=== PATIENT | male | born 1970 | race Two or more races ===

== ENCOUNTER 2016-10-09 07:33 | Observation (INO) | payer SELFPAY ==
[2016-10-09] MEDS ORDERED: Sodium Chloride 0.9% 1,000 ML IV STA (07:51)
[2016-10-09] MEDS ORDERED: Ketorolac 30 MG/ML SDV IVPUSH ONE (07:53)
[2016-10-09] MEDS ORDERED: Ondansetron 4 MG/2 ML SDV IVPUSH ONE (07:53)
[2016-10-09] MEDS ORDERED: HYDROmorphone 1 MG/ML Syringe IVPUSH ONE (08:01)
--- NOTE | 2016-10-09 08:03 | EDM.PDOC ---
ED HPI GENERAL MEDICAL PROBLEM - General Chief Complaint: Genitourinary Problem Stated Complaint: BLOOD IN URINE, FEVERISH Time Seen by Provider: 10/09/16 10:08 - History of Present Illness INITIAL COMMENTS - FREE TEXT/NARRATIVE: HISTORY AND PHYSICAL: History of present illness: Patient 45-year-old male presents with a concern of left-sided abdominal brain radiation to the groin 1 and half days with associated nausea he states he's felt feverish but denies documented temperature he's had no chills denies history urolithiasis denies trauma Review of systems: As per history of present illness and below otherwise all systems reviewed and negative. Past medical history: As per history of present illness and as reviewed below otherwise noncontributory. Surgical history: As per history of present illness and as reviewed below otherwise noncontributory. Social history: No reported history of drug or alcohol abuse. Family history: As per history of present illness and as reviewed below otherwise noncontributory. Physical exam: HEENT: Atraumatic, normocephalic, pupils reactive, negative for conjunctival pallor or scleral icterus, mucous membranes moist, throat clear, neck supple, nontender, trachea midline. Lungs: Clear to auscultation, breath sounds equal bilaterally, chest nontender. Heart: S1S2, regular, negative for clicks, rubs, or JVD. Abdomen: Soft, nondistended, nontender. Negative for masses or hepatosplenomegaly. Left side costovertebral tenderness. Pelvis: Stable nontender. Genitourinary: Deferred. Rectal: Deferred. Extremities: Atraumatic, negative for cords or calf pain. Neurovascular unremarkable. Neuro: Awake, alert, oriented. Cranial nerves II through XII unremarkable. Cerebellum unremarkable. Motor and sensory unremarkable throughout. Exam nonfocal. Diagnostics: CBC CMP UA urine culture CT abdomen and pelvis Therapeutics: Normal saline 1 L bolus and Toradol 30 mg IV Zofran 4 mg IV Flomax 0.4 mg by mouth Dilaudid 1 mg IV Impression: #1 left-sided abdominal/flank pain Definitive disposition and diagnosis as appropriate pending reevaluation and review of above. hypogastric area Pain Score (Numeric/FACES): 10 - Related Data Allergies Allergy/AdvReac Type Severity Reaction Status Date / Time No Known Allergies Allergy Verified 10/09/16 07:42 Home Meds: Home Meds . [No Known Home Meds] 10/09/16 [History] Past Medical History - Past Health History Medical/Surgical History: Denies Medical/Surgical History Social & Family History - Family History Family Medical History: Noncontributory - Tobacco Use Smoking Status *Q: Never Smoker - Recreational Drug Use Recreational Drug Use: No ED ROS GENERAL - Review of Systems Review Of Systems: ROS reveals no pertinent complaints other than HPI. ED EXAM, GENERAL - Physical Exam Exam: See Below (See dictation) Course - Vital Signs Last Recorded V/S: Last Vital Signs Temp 36.4 C 10/09/16 07:42 Pulse 88 10/09/16 09:02 Resp 15 10/09/16 09:02 BP 132/82 10/09/16 09:02 Pulse Ox 94 L 10/09/16 09:02 - Orders/Labs/Meds Orders: Active Orders 24 hr Category Date Time Status Patient Status [ADT] Stat ADT 10/09/16 10:00 Active Abdomen Pelvis wo Cont [CT] Stat Exams 10/09/16 07:57 Taken Labs: Laboratory Tests 10/09/16 10/09/16 10/09/16 Range/Units 07:48 07:48 08:57 WBC 21.60 H (4.0-11.0) K/uL RBC 4.88 (4.50-5.90) M/uL Hgb 16.2 (13.0-17.0) g/dL Hct 45.4 (38.0-50.0) % MCV 93.0 (80.0-98.0) fL MCH 33.2 H (27.0-32.0) pg MCHC 35.7 (31.0-37.0) g/dL RDW Std Deviation 44.1 (28.0-62.0) fl RDW Coeff of [place] 13 (11.0-15.0) % Plt Count 236 (150-400) K/uL MPV 10.10 (7.40-12.00) fL Neut % (Auto) 86.7 H (48.0-80.0) % Lymph % (Auto) 4.4 L (16.0-40.0) % [place] % (Auto) 8.8 (0.0-15.0) % Eos % (Auto) 0.0 (0.0-7.0) % Baso % (Auto) 0.1 (0.0-1.5) % Neut # (Auto) 18.7 H (1.4-5.7) K/uL Lymph # (Auto) 1.0 (0.6-2.4) K/uL [place] # (Auto) 1.9 H (0.0-0.8) K/uL Eos # (Auto) 0.0 (0.0-0.7) K/uL Baso # (Auto) 0.0 (0.0-0.1) K/uL Nucleated RBC % 0.0 /100WBC Nucleated RBCs # 0 K/uL Sodium 135 L (136-146) mmol/L Potassium 3.5 (3.5-5.1) mmol/L Chloride 104 (98-110) mmol/L Carbon Dioxide 21 (21-31) mmol/L BUN 8 (6.0-23.0) mg/dL Creatinine 1.1 (0.6-1.5) mg/dL Est Cr Clr Drug Dosing TNP Estimated GFR (MDRD) > 60.0 ml/min Glucose 152 H (60-110) mg/dL Calcium 9.1 (8.8-10.8) mg/dL Total Bilirubin 1.8 H (0.1-1.5) mg/dL AST 33 (5-40) IU/L ALT 48 (8-54) IU/L Alkaline Phosphatase 62 (40-150) Total Protein 8.1 H (6.0-8.0) g/dL Albumin 4.5 (3.5-5.0) g/dL Globulin 3.6 H (2.0-3.5) g/dL Albumin/Globulin Ratio 1.3 (1.3-2.8) Urine Color YELLOW Urine Appearance HAZY Urine pH 6.0 (5.0-8.0) Ur Specific [place] 1.010 (1.001-1.035) Urine Protein NEGATIVE (NEGATIVE) mg/dL Urine Glucose (UA) NEGATIVE (NEGATIVE) mg/dL Urine Ketones 40 H (NEGATIVE) mg/dL Urine Occult Blood LARGE H (NEGATIVE) Urine Nitrite POSITIVE H (NEGATIVE) Urine Bilirubin NEGATIVE (NEGATIVE) Urine Urobilinogen 0.2 (<2.0) EU/dL Ur Leukocyte Esterase MODERATE (NEGATIVE) Urine RBC 1-3 (0-2/HPF) Urine WBC 20-25 (0-5/HPF) Ur Epithelial Cells RARE (NONE-FEW) Urine Bacteria 1+ H (NEGATIVE) Meds: Medications Discontinued Medications Generic Name Dose Route Start Last Admin Trade Name Ana PRN Reason Stop Dose Admin Hydromorphone HCl 1 mg 10/09/16 08:01 10/09/16 08:04 Dilaudid IVPUSH 10/09/16 08:02 1 mg ONETIME ONE Administration Sodium Chloride 1,000 mls @ 999 mls/hr 10/09/16 07:51 10/09/16 07:58 Normal Saline IV 10/09/16 08:51 999 mls/hr NOW STA Administration Ceftriaxone Sodium/Dextrose 1 50 mls @ 100 mls/hr 10/09/16 09:21 10/09/16 09: 24 gm/ Premix IV 10/09/16 09:50 100 mls/hr ONETIME ONE Administration Ketorolac Tromethamine 30 mg 10/09/16 07:53 10/09/16 07:58 Toradol IVPUSH 10/09/16 07:54 30 mg ONETIME ONE Administration Ondansetron HCl 4 mg 10/09/16 07:53 10/09/16 07:58 Zofran IVPUSH 10/09/16 07:54 4 mg ONETIME ONE Administration Departure - Departure Time of Disposition: 10:08 Disposition: Refer to Observation Condition: Good Clinical Impression: UTI, Urinary tract infectious disease - Discharge Information Forms: ED Department Discharge - My Orders Last 24 Hours: My Active Orders 10/09/16 07:57 Abdomen Pelvis wo Cont [CT] Stat 10/09/16 10:00 Patient Status [ADT] Stat - Assessment/Plan Last 24 Hours: My Active Orders 10/09/16 07:57 Abdomen Pelvis wo Cont [CT] Stat 10/09/16 10:00 Patient Status [ADT] Stat
[2016-10-09 08:20] LABS: CHLORIDE,CL 104 mmol/L (98-110); SODIUM,NA 135 mmol/L (136-146)
[2016-10-09] MEDS ORDERED: cefTRIAXone 1 GM in Premix Bag 1 BAG IV ONE (09:21)
--- NOTE | 2016-10-09 10:14 | PCM.HP ---
H&P History of Present Illness - General Date of Service: 10/09/16 Admit Problem/Dx: Admission Diagnosis/Problem Admission Diagnosis/Problem Leukocytosis - History of Present Illness Initial Comments - Free Text/Narative: 45 yo male otherwise healthy admitted for pyelonephritis. He states she had dysuria, freqency and urgency since two days. He has abdominal pain that is located left sided that is radiating to groin. He does not have back pain. He has not been drinking enough water. He does not any STI symptoms. He does not smoke, drink etoh, or use illcit drugs. hypogastric area Pain Score (Numeric/FACES): 10 - Related Data Allergies/Adverse Reactions: Allergies Allergy/AdvReac Type Severity Reaction Status Date / Time No Known Allergies Allergy Verified 10/09/16 07:42 Home Medications: Home Meds . [No Known Home Meds] 10/09/16 [History] Past Medical History - Past Health History Medical/Surgical History: Denies Medical/Surgical History Social & Family History - Family History Family Medical History: Noncontributory - Tobacco Use Smoking Status *Q: Never Smoker - Recreational Drug Use Recreational Drug Use: No H&P Review of Systems - Review of Systems: Review Of Systems: See Below General: Reports: Fever, Chills HEENT: Reports: No Symptoms Pulmonary: Reports: No Symptoms Cardiovascular: Reports: No Symptoms Gastrointestinal: Reports: Abdominal Pain, Decreased Appetite Genitourinary: Reports: Dysuria, Frequency, Burning, Pain, Urgency. Denies: Hematuria, Discharge Musculoskeletal: Reports: No Symptoms Skin: Reports: No Symptoms Psychiatric: Reports: No Symptoms Neurological: Reports: No Symptoms Hematologic/Lymphatic: Reports: No Symptoms Immunologic: Reports: No Symptoms Exam - Exam Exam: See Below - Vital Signs Vital Signs: Last Vital Signs Temp 97.6 F 10/09/16 07:42 Pulse 88 10/09/16 09:02 Resp 15 10/09/16 09:02 BP 132/82 10/09/16 09:02 Pulse Ox 94 L 10/09/16 09:02 Weight: 90.6 kg - Exam General: Alert, Oriented HEENT: Conjunctiva Clear, EOMI Neck: Supple, Trachea Midline Lungs: Normal Respiratory Effort Cardiovascular: Regular Rate, Regular Rhythm Abdomen: Normal Bowel Sounds, Soft, Other (suprapubic tenderness. Negatvie Bilateral CVAT) Back Exam: Normal Inspection, Full Range of Motion Extremities: Normal Inspection Skin: Warm, Dry, Intact Neurological: Cranial Nerves Intact Psychiatric: Alert, Normal Affect, Normal Mood - Patient Data Lab Results Last 24 hrs: Laboratory Results - last 24 hr 10/09/16 10/09/16 10/09/16 Range/Units 07:48 07:48 08:57 WBC 21.60 H (4.0-11.0) K/uL RBC 4.88 (4.50-5.90) M/uL Hgb 16.2 (13.0-17.0) g/dL Hct 45.4 (38.0-50.0) % MCV 93.0 (80.0-98.0) fL MCH 33.2 H (27.0-32.0) pg MCHC 35.7 (31.0-37.0) g/dL RDW Std Deviation 44.1 (28.0-62.0) fl RDW Coeff of [place] 13 (11.0-15.0) % Plt Count 236 (150-400) K/uL MPV 10.10 (7.40-12.00) fL Neut % (Auto) 86.7 H (48.0-80.0) % Lymph % (Auto) 4.4 L (16.0-40.0) % [place] % (Auto) 8.8 (0.0-15.0) % Eos % (Auto) 0.0 (0.0-7.0) % Baso % (Auto) 0.1 (0.0-1.5) % Neut # (Auto) 18.7 H (1.4-5.7) K/uL Lymph # (Auto) 1.0 (0.6-2.4) K/uL [place] # (Auto) 1.9 H (0.0-0.8) K/uL Eos # (Auto) 0.0 (0.0-0.7) K/uL Baso # (Auto) 0.0 (0.0-0.1) K/uL Nucleated RBC % 0.0 /100WBC Nucleated RBCs # 0 K/uL Sodium 135 L (136-146) mmol/L Potassium 3.5 (3.5-5.1) mmol/L Chloride 104 (98-110) mmol/L Carbon Dioxide 21 (21-31) mmol/L BUN 8 (6.0-23.0) mg/dL Creatinine 1.1 (0.6-1.5) mg/dL Est Cr Clr Drug Dosing TNP Estimated GFR (MDRD) > 60.0 ml/min Glucose 152 H (60-110) mg/dL Calcium 9.1 (8.8-10.8) mg/dL Total Bilirubin 1.8 H (0.1-1.5) mg/dL AST 33 (5-40) IU/L ALT 48 (8-54) IU/L Alkaline Phosphatase 62 (40-150) Total Protein 8.1 H (6.0-8.0) g/dL Albumin 4.5 (3.5-5.0) g/dL Globulin 3.6 H (2.0-3.5) g/dL Albumin/Globulin Ratio 1.3 (1.3-2.8) Urine Color YELLOW Urine Appearance HAZY Urine pH 6.0 (5.0-8.0) Ur Specific [place] 1.010 (1.001-1.035) Urine Protein NEGATIVE (NEGATIVE) mg/dL Urine Glucose (UA) NEGATIVE (NEGATIVE) mg/dL Urine Ketones 40 H (NEGATIVE) mg/dL Urine Occult Blood LARGE H (NEGATIVE) Urine Nitrite POSITIVE H (NEGATIVE) Urine Bilirubin NEGATIVE (NEGATIVE) Urine Urobilinogen 0.2 (<2.0) EU/dL Ur Leukocyte Esterase MODERATE (NEGATIVE) Urine RBC 1-3 (0-2/HPF) Urine WBC 20-25 (0-5/HPF) Ur Epithelial Cells RARE (NONE-FEW) Urine Bacteria 1+ H (NEGATIVE) Result Diagrams: 10/09/16 07:48 10/09/16 07:48 *Q Meaningful Use (ADM) - VTE *Q VTE Criteria *Q: - Stroke *Q Stroke Criteria *Q: - AMI *Q AMI Criteria *Q: Problem List Initiated/Reviewed/Updated: Yes Orders Last 24hrs: Active Orders 24 hr Category Date Time Status Patient Status [ADT] Stat ADT 10/09/16 10:09 Active Abdomen Pelvis wo Cont [CT] Stat Exams 10/09/16 07:57 Taken Assessment/Plan Comment:: pyelonephritis rocephin and vanco IVF at 125 m regular diet zofran prn for nausea. urine culture pending abdomen ultrasound to assess kidneys. tylenol prn for pain
[2016-10-09] MEDS ORDERED: Temazepam 15 MG Cap PO PRN (10:19)
[2016-10-09] MEDS ORDERED: cefTRIAXone 1,000 MG in Sodium Chloride 0.9% 50 ML IV SCH (10:30)
[2016-10-09] MEDS: Sodium Chloride 0.9% 1,000 ML IV SCH ×2 (11:02→20:42)
[2016-10-09] MEDS: Levofloxacin/Dextrose 5%-Water 750 MG in Premix Bag 1 BAG IV SCH (11:02)
--- NOTE | 2016-10-09 11:02 | CT ---
EXAM DATE: 10/09/16 PATIENT'S AGE: 45 Patient: BARBARA GONZALEZ Facility: [place], [place] Site . Site : 1970 Study: CT Abdomen/Pelvis [id number]/[id number] 8:28:26 AM Ordering Physician: Alirio Hogan Final Report: INDICATION: abd pain HISTORY: Abdominal pain. COMPARISON: None. TECHNIQUE: CT of the abdomen and pelvis. No intravenous contrast. Coronal/sagittal reconstruction images. FINDINGS: Lung bases: There is no pleural or pericardial effusion. The heart size is normal. The lung bases demonstrate no acute airspace disease. Minimal atelectasis in the left lower lobe and lingular segment. No basilar pneumothorax. Abdomen/pelvis: Diffuse hepatic steatosis. Prior cholecystectomy. Normal caliber biliary tree. No solid hepatic mass. Spleen size is normal. No pancreatic mass or pancreatic duct dilation. No glandular atrophy. Bilateral perinephric stranding. There is no obstructive urolith. Prostate does not appear enlarged. There is no wall thickening within the small bowel or colon. There is no perienteric edema. Normal caliber appendix. No small bowel obstruction. Nonenlarged retroperitoneal lymph nodes. No abdominal or pelvic lymphadenopathy by size criteria. The bone windows demonstrate no lytic or blastic bone lesions. Bridging osteophytes at the right SI joint. IMPRESSION: 1. There are no acute findings seen to explain the patient`s abdominal pain. 2. Normal caliber appendix. 3. Diffuse hepatic steatosis. No solid hepatic mass. 4. No abdominal/pelvic lymphadenopathy. Dictated by Srikanth Robison MD @ 10/09/2016 8:41:10 AM Dictated by: Srikanth Robison MD @ 10/09/2016 08:41:24 (Electronic Signature) Report Signed by Proxy. [facility]
[2016-10-09] MEDS: Acetaminophen 325 MG Tab PO PRN ×2 (15:34→20:41)
[2016-10-10] MEDS: Acetaminophen 325 MG Tab PO PRN ×2 (04:23→10:06)
[2016-10-10] MEDS: Sodium Chloride 0.9% 1,000 ML IV SCH (06:12)
[2016-10-10 06:33] LABS: CHLORIDE,CL 111 mmol/L (98-110); SODIUM,NA 139 mmol/L (136-146)
[2016-10-10] MEDS ORDERED: cefTRIAXone 1 GM in Premix Bag 1 BAG IV SCH (09:00)
[2016-10-10 09:35] VITALS: BP 118/72
[2016-10-10] MEDS: Levofloxacin/Dextrose 5%-Water 750 MG in Premix Bag 1 BAG IV SCH (10:01)
--- NOTE | 2016-10-10 10:24 | PCM.DCSUM1 ---
Discharge Summary - Hospital Course Free Text/Narrative:: 45 yo male admitted for UTI and pylenephritis. His symptoms of dysuria, dark urine, frequency started abruptly. He has been working strenously and not drinking enough fluids. He was treated with IV levaquin and IVF. Renal US obtained to assess kidney structure. Urine culture was not preformed. His symptoms subsided. He is discharged with levaquin 750 mg QD x 10 days along with hydration. He is to follow up PCP next week. - Discharge Data Discharge Date: 10/10/16 Discharge Disposition: Home, Self-Care 01 Condition: Good - Discharge Plan Prescriptions/Med Rec: Levofloxacin [Levaquin] 750 mg PO DAILY #10 tablet Home Medications: Home Meds Levofloxacin [Levaquin] 750 mg PO DAILY #10 tablet 10/10/16 [Rx] Patient Handouts: Urinary Tract Infection, Adult, Levofloxacin tablets Referrals: Evan Ingram PA [Physician Marketing Administrative Assistant] - 10/16/16 9:15 am - General Info Date of Service: 10/10/16 - Review of Systems General: Reports: No Symptoms HEENT: Reports: no symptoms Pulmonary: Reports: no symptoms Cardiovascular: Reports: No Symptoms Gastrointestinal: Reports: No symptoms Genitourinary: Reports: no symptoms Musculoskeletal: Reports: no symptoms Skin: Reports: no symptoms Neurological: Reports: No Symptoms Psychiatric: Reports: no symptoms - Patient Data Vitals - Most Recent: Last Vital Signs Temp 98.7 F 10/10/16 08:00 Pulse 72 10/10/16 08:00 Resp 18 10/10/16 08:00 BP 118/72 10/10/16 08:00 Pulse Ox 93 L 10/10/16 08:00 Weight - Most Recent: 90.6 kg I&O - Last 24 hours: Intake & Output 10/09/16 10/10/16 10/10/16 22:59 06:59 14:59 Intake Total 1116 2250 50 Output Total 325 1620 Balance 791 630 50 Lab Results - Last 24 hrs: Laboratory Results - last 24 hr 10/10/16 10/10/16 Range/Units 05:53 05:53 WBC 12.24 H (4.0-11.0) K/uL RBC 4.33 L (4.50-5.90) M/uL Hgb 14.2 (13.0-17.0) g/dL Hct 40.3 (38.0-50.0) % MCV 93.1 (80.0-98.0) fL MCH 32.8 H (27.0-32.0) pg MCHC 35.2 (31.0-37.0) g/dL RDW Std Deviation 44.9 (28.0-62.0) fl RDW Coeff of [place] 13 (11.0-15.0) % Plt Count 189 (150-400) K/uL MPV 10.00 (7.40-12.00) fL Neut % (Auto) 84.4 H (48.0-80.0) % Lymph % (Auto) 7.3 L (16.0-40.0) % [place] % (Auto) 8.1 (0.0-15.0) % Eos % (Auto) 0.0 (0.0-7.0) % Baso % (Auto) 0.2 (0.0-1.5) % Neut # (Auto) 10.3 H (1.4-5.7) K/uL Lymph # (Auto) 0.9 (0.6-2.4) K/uL [place] # (Auto) 1.0 H (0.0-0.8) K/uL Eos # (Auto) 0.0 (0.0-0.7) K/uL Baso # (Auto) 0.0 (0.0-0.1) K/uL Nucleated RBC % 0.0 /100WBC Nucleated RBCs # 0 K/uL Sodium 139 (136-146) mmol/L Potassium 3.5 (3.5-5.1) mmol/L Chloride 111 H (98-110) mmol/L Carbon Dioxide 23 (21-31) mmol/L BUN 7 (6.0-23.0) mg/dL Creatinine 0.9 (0.6-1.5) mg/dL Est Cr Clr Drug Dosing 108.07 mL/min Estimated GFR (MDRD) > 60.0 ml/min Glucose 129 H (60-110) mg/dL Calcium 8.2 L (8.8-10.8) mg/dL Med Orders - Current: Current Medications Acetaminophen (Tylenol) 650 mg PO Q4H PRN PRN Reason: Pain Last Admin: 10/10/16 10:06 Dose: 650 mg Levofloxacin/Dextrose 750 mg/ (Premix) 150 mls @ 100 mls/hr IV Q24H [facility] Last Admin: 10/10/16 10:01 Dose: 100 mls/hr Sodium Chloride (Normal Saline) 1,000 mls @ 125 mls/hr IV ASDIRECTED [facility] Last Admin: 10/10/16 06:12 Dose: 125 mls/hr Ceftriaxone Sodium/Dextrose 1 (gm/ Premix) 50 mls @ 100 mls/hr IV Q24H [facility] Last Admin: 10/10/16 08:00 Dose: 100 mls/hr Temazepam (Restoril) 15 mg PO BEDTIME PRN PRN Reason: Sleep Discontinued Medications Hydromorphone HCl (Dilaudid) 1 mg IVPUSH ONETIME ONE Stop: 10/09/16 08:02 Last Admin: 10/09/16 08:04 Dose: 1 mg Sodium Chloride (Normal Saline) 1,000 mls @ 999 mls/hr IV NOW STA Stop: 10/09/16 08:51 Last Admin: 10/09/16 07:58 Dose: 999 mls/hr Ceftriaxone Sodium/Dextrose 1 (gm/ Premix) 50 mls @ 100 mls/hr IV ONETIME ONE Stop: 10/09/16 09:50 Last Admin: 10/09/16 09:24 Dose: 100 mls/hr Ceftriaxone Sodium 1,000 mg/ (Sodium Chloride) 50 mls @ 200 mls/hr IV Q24H [facility] Last Admin: 10/09/16 13:20 Dose: Not Given Ketorolac Tromethamine (Toradol) 30 mg IVPUSH ONETIME ONE Stop: 10/09/16 07:54 Last Admin: 10/09/16 07:58 Dose: 30 mg Ondansetron HCl (Zofran) 4 mg IVPUSH ONETIME ONE Stop: 10/09/16 07:54 Last Admin: 10/09/16 07:58 Dose: 4 mg - Exam General: Reports: alert, oriented HEENT: Reports: Pupils equal, EOMI Neck: Reports: supple, trachea midline Lungs: Reports: Clear to auscultation, Normal respiratory effort Cardiovascular: Reports: Regular Rate, Regular Rhythm Abdomen: Reports: bowel sounds present, soft Back Exam: Reports: Normal Inspection, Full Range of Motion Skin: Reports: warm, dry, intact Neurological: Reports: no new focal deficit Psy/Mental Status: Reports: alert, normal affect, normal mood *Q Meaningful Use (DIS) - VTE *Q VTE Criteria *Q: - Stroke *Q Stroke Criteria *Q: - AMI *Q AMI Criteria *Q:
--- NOTE | 2016-10-12 09:37 | US ---
EXAM DATE: 10/09/16 PATIENT'S AGE: 45 Patient: BARBARA GONZALEZ Facility: [place], [place] Site . Site : 1970 Study: US Abdomen [id number] 3:49:18 PM Ordering Physician: Jose Rivera Final Report: Indication: Abdominal pain. Findings: Right kidney 10.7 cm in length. Normal cortical thickness and echogenicity. No hydronephrosis, mass or cyst. Left kidney is 12 cm in length. Normal cortical thickness and echogenicity. No hydronephrosis, mass or cyst. Bilateral ureteral jets. Urinary bladder is normal. Impression: Negative sonographic evaluation of kidneys and urinary bladder. Dictated by Cole Gallagher MD @ Oct 11 2016 6:30PM (Electronic Signature) Report Signed by Proxy. [facility]
== END 2016-10-10 12:10 | disposition home or self-care (01) ==
LOC: MW.ED 07:33 → MW.MS 10:09
PROVIDERS: ADMIT Family Medicine; ATTEND Family Medicine
DX: N12 Tubulo-interstitial nephritis, not specified as acute or chronic (principal)
CPT/HCPCS: 36415; 74176; 76775; 80048; 80053; 81001; 85025; 96361; 96374; 96375; 99285; A9270; J0696; J1170; J1885; J1956; J2405; J7040; 96365; 96366; 96367; 96376; 99282; G0378